=== PATIENT | female | born 2000 | race Native Hawaiian/Other Pacific Islander ===

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

== ENCOUNTER 2020-04-17 15:30 | Outpatient (CLI) | payer BC | END 2020-04-17 20:08 | disposition home or self-care (01) | LOC: RAD 15:30 | DX: K59.00 Constipation, unspecified (principal) ==

== ENCOUNTER 2021-05-21 16:35 | Outpatient (CLI) | payer BC | END 2021-05-21 21:38 | disposition home or self-care (01) | LOC: RAD 16:35 | PROVIDERS: ATTEND Nurse Practitioner Family | DX: M25.561 Pain in right knee (principal) ==

== ENCOUNTER 2021-05-23 14:56 | Outpatient (CLI) | payer BC | END 2021-05-23 21:08 | disposition home or self-care (01) | LOC: US 14:56 | PROVIDERS: ATTEND Nurse Practitioner Family | DX: M54.2 Cervicalgia (principal) ==

== ENCOUNTER 2021-06-26 13:39 | Outpatient (CLI) | payer BC | END 2021-06-26 19:14 | disposition home or self-care (01) | LOC: LABW 13:39 | PROVIDERS: ATTEND Nurse Practitioner Family | DX: J02.9 Acute pharyngitis, unspecified (principal) | CPT/HCPCS: 87651 ==